=== PATIENT | male | born 1990 | race Caucasian/White ===

== ENCOUNTER 2017-02-20 12:49 | Emergency (ER) | payer BC ==
--- NOTE | ~2017-02-20 | CR172 ---
[facility] A Service of [facility] RADIOLOGY TEXT RESULTS PATIENT: MELISSA WATTERS LOCATION: SED : 89 UNIT #: [id number] AGE: [address]: Perfecto Beltran SEX: M ORDER DR: [id number] [place] [id number] E MR#: [id number] Acc #: [id number] NAME: MELISSA WATTERS : 1990 SEX: M STUDY DATE/TIME: 02/20/2017 13:07 UNIT: SED ROOM: STUDY DESCRIPTION: CR Knee 3 Views Lt Attending Physician: Perfecto Beltran P.A.-C. Ordering Physician: Perfecto Beltran P.A.-C. Primary Care Physician: No Primary Care Physician MEDICAL IMAGING REPORT This report is preliminary unless electronic signature is present. EXAM Left knee 3 views INDICATIONS Anterior left knee pain since yesterday. Injury in kick-boxing class. COMPARISON No comparisons. FINDINGS The joint spaces are preserved. There is no fracture, dislocation, or joint effusion. IMPRESSION Negative Dictated by... Terence Bonilla M.D. THIS IS AN ELECTRONICALLY VERIFIED REPORT Terence Bonilla M.D. at 02/21/2017 6:11 PM Martina TD: 02/20/2017 14:20 JOB #: [id number] MEDICAL IMAGING REPORT Page 1 of 1
[~2017-02-20 12:49] MED LIST: ANTIBIOTICS; BACTRIM DS TABL1 TA1 PO; ELOCON OINT45 GM TOP; IMODIUM2 MG PO; KEFLEX PO; NO MEDICATIONS; TYLENOL #3 PO
== END 2017-02-20 14:14 | disposition home or self-care (01) ==
LOC: SED 12:49
DX: S83.92XA Sprain of unspecified site of left knee, initial encounter (principal); X58.XXXA Exposure to other specified factors, initial encounter; Y92.9 Unspecified place or not applicable
CPT/HCPCS: 29515; 73562; 99283